=== PATIENT | male | born 1950 ===

== ENCOUNTER 2016-09-14 16:15 | Emergency (ER) | payer BC ==
[2016-09-14] MEDS ORDERED: AZITHROMYCIN 500 MG TABLET PO ONE (16:56)
--- NOTE | 2016-09-14 17:01 | Emergency Department Record ---
History of Present Illness - General Chief complaint: ENT Stated complaint: CHEST /SINUS CONGESTION Time Seen by Provider: 09/14/16 16:55 Source: Patient, Family Mode of Arrival: Ambulatory Limitations: No limitations - History of Present Illness Initial comments: 65 yo presents with several days of cough. The cough is productive at this time. The phlegm is greenish. He has had some subjective fevers. No blood in the sputum. He has had green nasal drainage as well. In 1990 he had pneumonia. Non smoker. No underlying lung disease. PCP is Dr Ghose. GONZALES complaint: Other (Cough and sinus congestion) Onset/Timin -: Days(s) Severity: Moderate Quality: Aching Consistency: Constant Improves with: None Worsens with: Other (Cough) - Related Data Home Medications Medication Instructions Recorded Confirmed Last Taken Furosemide #180 08/27/16 Unknown Insulin Glargine,Hum.rec.anlog #15 08/27/16 Unknown [Lantus Solostar] Insulin NPL/Insulin Lispro #30 08/27/16 Unknown [Humalog Mix 75-25 Kwikpen] Metoprolol Succinate #90 08/27/16 Unknown Rivaroxaban [Xarelto] #30 08/27/16 Unknown Simvastatin #90 08/27/16 Unknown Telmisartan/Hydrochlorothiazid #90 08/27/16 Unknown [Telmisartan-Hctz 80-12.5 Mg Tb] Tramadol HCl #120 08/27/16 Unknown Previous Rx's Medication Instructions Recorded Hydrocodone/Acetaminophen [[place] 1 tab PO Q8H PRN #15 tab 08/30/16 5mg/325mg] Prednisone [Prednisone 20Mg] 20 mg PO BID #10 tab 08/30/16 Azithromycin [Zithromax] 250 mg PO DAILY #4 tab 09/14/16 Allergies Allergy/AdvReac Type Severity Reaction Status Date / Time No Known Allergies Allergy Unverified 08/27/16 15:00 Travel Screening - Travel/Exposure Within Last 30 Days Have you traveled within the last 30 days?: No - Travel/Exposure Within Last Year Have you traveled outside the [place] in the last year?: No - Additonal Travel Details Have you been exposed to anyone with a communicable illness?: No - Travel Symptoms Symptom Screening: None Review of Systems Constitutional: Reports: Chills, Fever. Denies: Malaise Eyes: Denies: Eye discharge ENT: Reports: Congestion. Denies: Ear pain, Epistaxis, Throat pain Respiratory: Reports: Cough. Denies: Dyspnea, Hemoptysis, Stridor, Wheezes Cardiovascular: Denies: Chest pain, Palpitations, Syncope Endocrine: Denies: Fatigue Gastrointestinal: Denies: Abdominal pain, Diarrhea, Nausea, Vomiting Genitourinary: Denies: Dysuria, Frequency, Hematuria Musculoskeletal: Reports: Arthralgia (chronically dealing with gout). Denies: Back pain, Joint swelling, Myalgia, Neck pain Skin: Denies: Bruising, Change in color, Rash Neurological: Denies: Confusion, Headache Psychiatric: Denies: Anxiety Hematological/Lymphatic: Denies: Blood Clots, Easy bleeding, Easy bruising, Swollen glands Past Medical History - SOCIAL HISTORY Smoking Status: Never smoker Alcohol Use: None Drug Use: None - RESPIRATORY Hx Respiratory Disorders: No - CARDIOVASCULAR Hx Cardio Disorders: Yes Hx Irregular Heartbeat: Yes (hx of Vtach) Hx Pacemaker/Defib: Yes - NEURO Hx Neuro Disorders: No - GI Hx GI Disorders: Yes Hx Reflux: Yes - Hx Genitourinary Disorders: No - ENDOCRINE Hx Endocrine Disorders: Yes Hx Diabetes: Yes - MUSCULOSKELETAL Hx Gout: Yes - PSYCH Hx Psych Problems: No - HEMATOLOGY/ONCOLOGY Hx Hematology/Oncology Disorders: No Family Medical History Any Significant Family History?: Yes Physical Exam - General General Appearance: Alert, Oriented x3, Cooperative, No acute distress - Head Head exam: Normal inspection - Eye Eye exam: Normal appearance, PERRL. negative: Conjunctival injection - ENT ENT exam: Normal exam, Mucous membranes moist Ear exam: Normal external inspection. negative: External canal tenderness Nasal Exam: Discharge. negative: Normal inspection Mouth exam: Normal external inspection, Tongue normal Teeth exam: Normal inspection. negative: Dental caries Throat exam: Normal inspection. negative: Tonsillar erythema, Tonsillar exudate - Neck Neck exam: Normal inspection, Full ROM. negative: Lymphadenopathy, Tenderness - Respiratory Respiratory exam: Normal lung sounds bilaterally. negative: Accessory muscle use, Decreased breath sounds, Prolonged expiratory, Respiratory distress, Rhonchi, Stridor, Wheezes - Cardiovascular Cardiovascular Exam: Regular rate, Normal rhythm, Normal heart sounds - GI/Abdominal GI/Abdominal exam: Soft. negative: Tenderness - Rectal Rectal exam: Deferred - exam: Deferred - Extremities Extremities exam: Normal inspection. negative: Pedal edema - Back Back exam: Reports: Normal inspection. Denies: CVA tenderness (R), CVA tenderness (L) - Neurological Neurological exam: Alert, Normal gait, Oriented X3 - Psychiatric Psychiatric exam: Normal affect, Normal mood. negative: Agitated, Anxious - Skin Skin exam: Dry, Intact, Normal color, Warm Course Vital Signs 09/14/16 16:52 Temperature 98.5 F Pulse Rate 70 Respiratory 18 Rate Blood Pressure 123/67 Pulse Ox 96 - Reevaluation(s) Reevaluation #1: Vitals reviewed No acute changes Given his productive sputum he will be placed on Zithromax. 09/14/16 16:59 Disposition Disposition: Discharge Clinical Impression: Bronchitis Disposition: Home, Self-Care Condition: (1) Good Instructions: Acute Bronchitis (ED) Additional Instructions: Return if worse, short of breath, fever, or any new concerns Call your doctor for close follow up this week Prescriptions: Azithromycin [Zithromax] 250 mg PO DAILY #4 tab Forms: Patient Portal Access Time of Disposition: 17:00
== END 2016-09-14 17:15 | disposition home or self-care (01) ==
LOC: ER 16:15
DX: J20.9 Acute bronchitis, unspecified (principal)
CPT/HCPCS: 99282